=== PATIENT | male | born 1950 | race Caucasian/White ===

== ENCOUNTER 2016-10-28 22:49 | Observation (INO) | payer MEDICARE, BC ==
[~2016-10-28] VITALS: Ht 180.3 cm; Wt 85.0 kg
--- NOTE | ~2016-10-28 | ER ---
PATIENT'S NAME: CANDIDO AIKEN [facility] AGE: 66 Y [address] ROOM: [place] [address] LOCATION: [facility] [place] ADMIT DATE: 10/29/2016 ER/Outpatient Report DISCHARGE DATE: FAMILY PHYSICIAN: Agustín Hinkle MD ATTENDING PHYSICIAN: CHRISTINE MARIA V CHIEF COMPLAINT: Redness, pain, and swelling to the left ankle. HISTORY OF PRESENT ILLNESS: Mr. Aiken noticed a red spot on the inside of his left ankle on , October 25. He was seen on Saturday and started on Keflex and did not improve, in fact worsened, and was started on Bactrim recently. He has had continuation of extends, and is having more pain, and there is no blister. Supposedly, there was some drainage, but it is unclear what that was. The patient denies any other issues actively. He has no other complaints. He denies any shortness of breath. PAST MEDICAL HISTORY: Documented on the record and reviewed by me. SOCIAL HISTORY: Documented on the record and reviewed by me. MEDICATIONS: Documented on the record and reviewed by me. ALLERGIES: DOCUMENTED ON THE RECORD AND REVIEWED BY ME. REVIEW OF SYSTEMS: All systems reviewed and negative except as noted in the HPI. PHYSICAL EXAMINATION: VITAL SIGNS: Blood pressure 125/67, pulse 84, respiratory rate 16, temperature 98.3, and SpO2 is 93% on room air. Pain is rated 8/10. GENERAL: Age-appropriate male, upright on the exam chair, in no apparent pain or distress. NEUROLOGIC: Awake and alert. GCS 15. No focal deficits. No asymmetry. HEENT: Normocephalic, atraumatic. Eyes are PERRL. Oropharynx is clear. NECK: Supple. Trachea is midline. CHEST: Even and unlabored respirations. Heart is not tachycardic, regular rate and rhythm. BACK: Normal to inspection and palpation. ABDOMEN: Benign. PATIENT'S NAME: CANDIDO AIKEN [facility] AGE: 66 Y [address] ROOM: [place] [address] LOCATION: [facility] [place] ADMIT DATE: 10/29/2016 ER/Outpatient Report DISCHARGE DATE: FAMILY PHYSICIAN: Agustín Hinkle MD ATTENDING PHYSICIAN: CHRISTINE MARIA V EXTREMITIES: The left lower extremity is notable for marked area of erythema consistent with cellulitis, but poorly demarcated borders. The central most areas are very warm. There is a single bulla measuring 1 x 2 cm just inferior and posterior to the medial malleolus. No purulent drainage. Tender to palpation. Skin is shiny and erythematous. Sensation is intact throughout the foot. SKIN: Otherwise intact. LABORATORY DATA AND X-RAYS: Plain films do not reveal any osseous abnormalities or radiopaque foreign bodies. Labs: CMS without appreciable abnormality of electrolytes. Glucose is 104. No renal abnormalities. ESR is 66. CRP is 4.16. CBC is notable for a white count of 2.4, hemoglobin of 9.4, and platelets of 98. Differential was not able to be supplied. D-dimer is 2.03. Lactate is 0.8. IMPRESSION: 1. Likely cellulitis with failed outpatient treatment regimen. 2. Pancytopenia of unclear etiology. EMERGENCY DEPARTMENT COURSE: The patient was seen and evaluated as above. Infection, DVT, and abscess were of chief concern. D-dimer was elevated, and venous duplex ultrasound was obtained and negative per combination technician. Bedside ultrasound did not reveal any abscess and tissue was only consistent with cellulitis infection. The patient was incidentally found to have pancytopenia of undetermined etiology and duration. This can be a side effect of Bactrim. However, as the patient has clearly failed outpatient treatment, he was given a dose of IV clindamycin given the history of MRSA, and he will be admitted to the Hospitalist Service for further evaluation and treatment. MD BRIGID MUNSON/mami /[id number] d: 10/29/16 0416 t: 10/30/16 1253, OUTPATIENT REPORT
--- NOTE | ~2016-10-28 | CON ---
PATIENT'S NAME: DARIN AIKEN [facility] AGE: 66 Y [address] ROOM: [address] [place], [place] [address] [place] [facility] [place]: 10/29/2016 Consultation DISCHARGE DATE: 10/30/2016 FAMILY PHYSICIAN: Agustín Hinkle MD ATTENDING PHYSICIAN: Ralph Baumann V DATE OF CONSULTATION: 10/30/2016 REFERRING PHYSICIAN: Efraín Reza MD This is a consult to Dr. Rachel Mcmullen. REASON FOR CONSULTATION: Darin Aiken is a 66-year-old man with uncharacterized pancytopenia. HISTORY OF PRESENT ILLNESS: The history of the present illness was obtained from Mr. Aiken, who is a good historian, as there is very little medical history to recount; Mrs. Aiken; their two helpful daughters; and the current and old [facility] record. Mr. Aiken was in his normal state of health until morning, 10/25/2016. He lived in [place], [place] with his and "two cats." He had been retired for three years. He had no formal or informal exercise programs. He did not participate in any physical therapy or occupational therapy regimen. He had no practical limits. In the morning on 10/25/2016, he developed intense pruritus over the medial malleolus of his left tibia. A blister rapidly developed. By that evening, the pain was intense. The next day he presented to the [facility]. No blood work was obtained and cephalexin was prescribed. The patient's pain and pruritus did not improve, and on 10/27/2016, he presented to the [facility]. Trimethoprim sulfamethoxazole was prescribed there. The patient took two doses of trimethoprim sulfamethoxazole. The patient had progressive pain. Therefore, he presented to the [facility] late in the evening of 10/28/2016. At that time, the examination revealed an area of marked erythema consistent with cellulitis with poorly demarcated borders. The central areas were very warm and there was a single bulla measuring 2 cm just inferior and posterior to the medial malleolus. The white count was 2400 with 77% lymphocytes and 3% monocytes, 4% metamyelocytes, and 14% "abnormal lymphocytes." The ESR was 66 mm/hr. The hemoglobin was 9.4 G/dL, the MCV 100, and the platelets 98,000. Yesterday, the white count was 2200 with 7% blasts, 9% promyelocytes, 8% myelocytes, 1% metamyelocytes, 3% eosinophils, 3% monos, 66% lymphocytes, 1 band, and 1 seg. The hemoglobin was 9.5 G/dL, the MCV 100, and the platelets 85,000. The CMS was remarkable for an albumin of 3.1 G/dL, but otherwise was unremarkable. A two view chest x-ray just revealed osteoarthritis in the thoracic spine as PATIENT'S NAME: DARIN AIKEN [facility] AGE: 66 Y [address] ROOM: [address] [address] [place] [facility] [place]: 10/29/2016 Consultation DISCHARGE DATE: 10/30/2016 FAMILY PHYSICIAN: Agustín Hinkle MD ATTENDING PHYSICIAN: Ralph Baumann V well as an ectatic aorta. The plain film of the left ankle revealed no fracture or dislocation. Soft-tissue swelling was evident. The patient is seen in consultation. The patient has no prior history of blood dyscrasia. He last underwent a complete blood count in 2014 before a right carotid endarterectomy. The patient was not informed he had any abnormalities of the complete blood count at that point. The patient's family notes that he "seemed and looked tired" over the past several months but there has been no change in his performance status. The patient reports that he has treated himself with [id number] medications for a presumed fungal infection in the left great toenail. The patient has occasional audible palpitations in his ears and has a persistent productive cough. He produces a teaspoon a day of yellow sputum. The patient was asymptomatic when the carotid stenosis was noted on a health screening sonogram. The patient believes the carotid narrowing might have been 75 to 80% but recalls his attending physician stated it was over 95% at the time of surgery. ACTIVE MEDICAL PROBLEMS, CHRONIC, AND DIAGNOSED: 1. Atherosclerotic cerebrovascular disease leading to a right carotid endarterectomy. 2. Tobacco use; the patient has smoked 1-1/2 pack per day of cigarettes for 55 years. 3. Osteoarthritis of the thoracic spine noted on a chest x-ray. 4. Hypercholesterolemia noted in 2016. A statin was prescribed, but the patient has not adhered to that regimen. He experienced no side effects from the statins. ACUTE MEDICAL ILLNESSES (RESOLVED), PAST SURGERIES, INJURIES: 1. In 1968 (?), hemorrhoid. 2. In 1991 - concussion, no sequela. A heat pump fell on his head. 3. In 2007 - excision of a basal cell carcinoma from the neck. 4. In 2011 - methicillin-sensitive Staphylococcus aureus infection of the right dorsal forearm. 5. In 2011 - right proximal dorsal forearm excision of a squamous cell carcinoma. 6. In 2014 - a right carotid endarterectomy. MEDICATIONS: Up on admission: 1. ASA 81 mg p.o. daily. 2. Dietrich-3 fatty acids 1000 mg p.o. daily. 3. Trimethoprim-sulfamethoxazole DS 1 p.o. b.i.d. PATIENT'S NAME: DARIN AIKEN [facility] AGE: 66 Y [address] ROOM: [place] [address] [place] [facility] [place] DATE: 10/29/2016 Consultation DISCHARGE DATE: 10/30/2016 FAMILY PHYSICIAN: Agustín Hinkle MD ATTENDING PHYSICIAN: Ralph Baumann V ADVERSE REACTIONS TO MEDICATIONS, TRANSFUSIONS, ALLERGIES: 1. No known allergies. 2. No history of transfusions. TOBACCO: 1-1/2 pack per day for 55 years. The patient continues to smoke. ALCOHOL: One alcoholic beverage a month. CAFFEINE: One cup of coffee a day. IMMUNIZATIONS: Negative flu, negative Pneumovax, the patient will take the Pneumovax shot here. Negative tetanus. Negative varicella zoster virus. FAMILY HISTORY: Negative for blood dyscrasias or malignancies. SOCIAL HISTORY: The patient was born and raised [place], [place]. He attended [employer] in [place]. The patient has been and has lived in [place] for many decades. 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 His worked for decades at [employer] in [place]. They have two daughters in the [place] area and they are not gnosticism goers. REVIEW OF SYMPTOMS: 1. Has a stiff neck and mild hip. 2. Longstanding bilateral tinnitus. 3. Occasional hematochezia about every 3 months for many years. The patient has not had a colonoscopy. PHYSICAL EXAMINATION: VITAL SIGNS: Pulse 72 and regular, blood pressure 125/60, respiratory rate 16, temperature 97.9, and SpO2 95% on room air. Height 71 inches, weight 85 kg (187 pounds). BMI 26.1 kg/m2. GENERAL APPEARANCE: Well-developed, slightly overweight, 66-year-old, male, in no acute distress. HEENT: Unremarkable. Minimal acne rosacea. LYMPH NODES: None palpable. NECK: A right carotid endarterectomy scar. No bruits or adventitious sounds. SKIN: Seborrheic keratosis, potter angiomas, and nevi. PATIENT'S NAME: DARIN AIKEN [facility] AGE: 66 Y [address] ROOM: [address] [place] [id number] [place] [facility] [place] DATE: 10/29/2016 Consultation DISCHARGE DATE: 10/30/2016 FAMILY PHYSICIAN: Agustín Hinkle MD ATTENDING PHYSICIAN: Ralph Baumann V CHEST: Decreased breath sounds bilaterally. CV: Regular rhythm. No murmurs, bruits, or adventitious sounds. ABDOMEN: No masses, tenderness, or organomegaly. GENITALIA AND RECTAL: There are no active external hemorrhoids. Digital rectal exam is not performed. EXTREMITIES: Pulses 2+ throughout without peripheral edema. There is a confluent area of erythema and warmth with a 2-cm blister on the medial aspect of the left leg. The blister is close to the medial malleolus. NEUROLOGIC: The patient moves all 4 extremities. Grossly intact. He is alert and oriented. IMPRESSION: 1. A 66-year-old man with a 5-day history of unprovoked cellulitis on the left lower leg, unresponsive to oral antibiotics, responsive to parenteral antibiotics, pancytopenia with macrocytic anemia, agranulocytosis and multiple immature myeloid forms on peripheral smear. 2. 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 RECOMMENDATIONS: DIAGNOSTIC: 1. LDH and uric acid. 2. INR and PTT. 3. Folic acid and B12. 4. Consult the Acute Leukemia Service at [facility] for assistance in evaluation and management. TREATMENT: 1. No antineoplastic therapy at this point. 2. Continue current medications. PATIENT EDUCATION: 1. Confirmed what we did know and discussed what we did not know. 2. Acknowledge we think it most likely he has acute leukemia. 3. Discussed the advantages of evaluation at a tertiary medical center. It is probably reasonable to get a bone marrow aspiration and biopsy at [facility] instead of here. 4. Gave him the [employer] material on acute myeloid leukemia. MD DAYDAY JON/mami /[id number] PATIENT'S NAME: DARIN AIKEN [facility] AGE: 66 Y [address] ROOM: [place] [address] [place] [facility] [place]: 10/29/2016 Consultation DISCHARGE DATE: 10/30/2016 FAMILY PHYSICIAN: Agustín Hinkle MD ATTENDING PHYSICIAN: Ralph Baumann V CC: MD Loli Arellano MD d: 10/30/16 2325 t: 10/31/16 1005, CONSULTATION REPORT
--- NOTE | ~2016-10-28 | ENPV ---
Vascular Lower Extremities DVT Study Procedure Demographics Patient Name CANDIDO MESSINA Date of Study 10/29/2016 Patient Number [id number] Gender Male Date of 1950 Age 66 Visit Number [id number] Height Accession Number [id number] Weight Room Number G3218 BSA BMI Referring Arin Del Valle MD Interpreting Hero Rivera MD Physician Physician Physician Ordering Georgiana Bourne MD Director Of Maintenance Physician Pattern Wheel Maker Eddy [facility], [facility] Conclusions Summary No evidence of deep vein thrombosis or superficial thrombophlebitis in the left lower extremity. Procedure Type of Study: Veins:Lower Extremities DVT Study, Lower Extremity Left. Appropriate Use Criteria:9 Patient Status:STAT. Study Location:ER. Technical Quality:Good visualization. Velocities are measured in cm/s ; Diameters are measured in cm Left Lower Extremities DVT Study Measurements Left 2D and Doppler Measurements + + + + +------+------+ + !Location !Visualized!Compressibility!Thrombosis!Signal!Reflux!Reflux ! ! ! ! ! ! ! !(sec) ! + + + + +------+------+ + !GSV Thigh !Yes !Yes !None !Phasic! ! ! + + + + +------+------+ + !Common !Yes !Yes !None !Phasic! ! ! !Femoral ! ! ! ! ! ! ! + + + + +------+------+ + !Prox !Yes !Yes !None !Phasic! ! ! !Femoral ! ! ! ! ! ! ! + + + + +------+------+ + !Mid Femoral!Yes !Yes !None ! ! ! ! + + + + +------+------+ + !Dist !Yes !Yes !None !Phasic! ! ! !Femoral ! ! ! ! ! ! ! + + + + +------+------+ + !Popliteal !Yes !Yes !None !Phasic! ! ! + + + + +------+------+ + !Gastroc !Yes !Yes !None !Phasic! ! ! + + + + +------+------+ + !PTV !Yes !Yes !None ! ! ! ! + + + + +------+------+ + !Peroneal !Yes !Yes !None ! ! ! ! + + + + +------+------+ + Signature dtt: JULIETH JULES dtd: 10/29/16 0030 Physician Self Edit
--- NOTE | ~2016-10-28 | DS ---
PATIENT'S NAME: CANDIDO AIKEN [facility] AGE: 66 Y [address] ROOM: [address] [place], [place] [address] LOCATION: [facility] [place] ADMIT DATE: 10/29/2016 Discharge Summary DISCHARGE DATE: 10/30/2016 FAMILY PHYSICIAN: Agustín Hinkle MD ATTENDING PHYSICIAN: Ralph Baumann V PRINCIPAL DISCHARGE DIAGNOSIS: Acute myeloid leukemia. SECONDARY DIAGNOSES: 1. Pancytopenia. 2. Severe neutropenia. 3. Cellulitis, status post suspected insect bite. 4. Tobacco use. CONSULTATIONS: Hematology/oncology, Dr. Reza on 10/30/2016 regarding blasts on peripheral blood smear. BRIEF HISTORY: Mr. Aiken is a 66-year-old, male who has no significant past medical history, excepting carotid endarterectomy. He reports he is not even sure when he had his last visit to his PCP or when his last CBC would have been. On the , the patient noticed some redness and swelling around his left ankle and was seen in outpatient clinic where he was started on Keflex. He reports that he took 500 mg of Keflex p.o. q.i.d. on Saturday and swelling and redness continued to increase at the site of what he presumed to be a bug bite on his left medial ankle. Later on that day, the , he was changed to Bactrim, and he reports that he took 2 doses of double strength Bactrim on Saturday, the . When he continued to have symptoms, which did not seem to be responding to the antibiotics, he presented to emergency room. On evaluation in the emergency room here at [facility], in [place], [place], he was found to have leukopenia with no neutrophils and absolute neutrophil count of 0, anemia, and thrombocytopenia. He was started on IV clindamycin and admitted for further evaluation and treatment. Yesterday when the CBC was repeated, there were some blasts and other immature forms noted. At that time, the patient was placed on neutropenic precautions and advised that it is very unlikely that the acute infection and/or the antibiotics could be the etiology for these abnormal blood counts. Dr. Reza of Oncology was consulted this morning. He reviewed the blood smears with our pathologist and it is confirmed that there were immature forms with blasts and it likely indicated a type of myeloid leukemia requiring immediate evaluation. The patient agrees to be transferred to [facility] PATIENT'S NAME: CANDIDO AIKEN [facility] AGE: 66 Y [address] ROOM: [address] [place], [place] [address] LOCATION: [facility] [place] ADMIT DATE: 10/29/2016 Discharge Summary DISCHARGE DATE: 10/30/2016 FAMILY PHYSICIAN: Agustín Hinkle MD ATTENDING PHYSICIAN: Ralph Baumann V [facility], [facility]. Dr. Reza feels the patient can be appropriately transported via private automobile at this time. CONDITION AT DISCHARGE: Good. DISCHARGE INSTRUCTIONS: To drive directly to [facility]. MEDICATIONS AT DISCHARGE: We will recommend that he continue on IV clindamycin for his cellulitis of the left lower leg; however, defer all medical management to the accepting hospital. Dr. Reza has discussed the transfer and spoke with the accepting physician at the [facility] and advised me that the transfer should be initiated promptly. MINH RAMIREZ MD LM/mami /[id number] P d: 10/30/16 1544 t: 11/05/16 1223, DISCHARGE SUMMARY
--- NOTE | ~2016-10-28 | HP ---
[facility] 66 Y [address] ROOM: [facility] [place], [place] [address] LOCATION: [facility] [place] ADMIT DATE: 10/29/2016 History & Physical DISCHARGE DATE: FAMILY PHYSICIAN: Agustín Hinkle MD ATTENDING PHYSICIAN: CHRISTINE MARIA V DATE OF SERVICE: CHIEF COMPLAINT: Left lower extremity swelling. HISTORY OF PRESENT ILLNESS: The patient is a 66-year-old male who noted an insect bite on the medial aspect of his left foot approximately 3 days ago. The swelling and redness got worse and he was seen in after-hours clinic. There he was started on Keflex, but symptoms did not improve. The patient subsequently went to see his PMD and was placed on Bactrim. That was approximately 36 hours ago. However, the swelling and the redness continued to extend. Today, the patient came to the ER. Here, he had negative Dopplers, but was found to have pancytopenia. He denies any shortness of breath, chest pain, nausea, vomiting, diaphoresis associated with this presentation. REVIEW OF SYSTEMS: All systems have been reviewed and are negative aside from pertinent positives mentioned above. PAST MEDICAL HISTORY: Significant for a carotid endarterectomy on the right. CURRENT MEDICATIONS: 1. Fish oil. 2. Baby aspirin. SOCIAL HISTORY: The patient has been a lifelong smoker and continues to smoke approximately a pack a day. FAMILY HISTORY: The patient denies any pertinent family history. PHYSICAL EXAMINATION: VITAL SIGNS: His blood pressure is 112/60, heart rate is in the 70s, afebrile, respirations are 16. GENERAL: Well-developed, well-nourished elderly male, looking younger age [facility]: [facility]GE[facility] 66 Y [address] ROOM: [facility] [place], [place] [address] LOCATION: [facility] [place] ADMIT DATE: 10/29/2016 History & Physical DISCHARGE DATE: FAMILY PHYSICIAN: Agustín Hinkle MD ATTENDING PHYSICIAN: CHRISTINE MARIA V than stated, in no acute distress. NEUROLOGIC EXAM: Nonfocal. EYE EXAM: Shows pupils are equal and reactive to light. LYMPHATIC EXAM: Shows no cervical lymphadenopathy. ENDOCRINE EXAM: Shows no thyromegaly. LUNGS: Clear to auscultation bilaterally. HEART: Rate is regular. No appreciable murmurs, gallops, or rubs. GI: Abdomen is soft, nontender, and nondistended. : No costovertebral angle tenderness. VASCULAR EXAM: 2+ pedal pulses. SKIN: Reveals erythema and warmth over the dorsum of his left foot with a lesion at the medial aspect of the right malleolus. PSYCHIATRIC EXAM: Appropriate mood, cognition, and affect. LABORATORY DATA: Studies performed in the ER significant for unremarkable basic metabolic profile. CRP of 4.16. White count 2.4, hemoglobin 9.4, platelets are 9.8. D- dimer 2.03. ESR is 66. ASSESSMENT AND PLAN: 1. This is a 66-year-old male who will be admitted with left lower extremity cellulitis that failed outpatient antibiotics. The patient has been started on clindamycin. We will continue that. We will follow the extent of the cellulitis clinically. We will place him on a probiotic. 2. Pancytopenia. This could possibly be related to Bactrim. We will follow the patient's counts through his hospital stay and consider Hematology consultation. 3. Pharmacologic DVT prophylaxis will be instituted if the patient is immobilized and stays in the hospital for more than 48 hours. 4. Tobaccoism. We will provide him a nicotine patch. Additional management will depend on clinical course. Time dedicated for this patient encounter is 25 minutes. MD JOSUE ROUSSEAU/mami /[id number] D: [id number] T: [id number] HISTORY & PHYSICAL
[2016-10-28 23:38] LABS: HEMATOCRIT 27.2 % (37.0-53.0); HEMOGLOBIN 9.4 g/dL (11.0-16.0); MCH 34.4 pg (27.0-34.0); MCHC 34.6 gm/dL (32.0-36.5); MCV 99.6 fl (83.0-98.0); PLATELET COUNT 98 K/uL (150-450); RBC 2.73 M/uL (3.50-5.50); RDW-CV 17.3 % (11.9-14.6); WBC 2.4 K/uL (4.0-11.0)
[2016-10-29 00:24] LABS: LYMPHOCYTE # 2.2 K/uL (0.8-4.0); LYMPHOCYTE % 77 %; MONOCYTE # 0.1 K/uL (0.0-1.0); SEGMENTED NEUTROPHIL % 1 %
[2016-10-29 00:45] LABS: ALBUMIN 3.4 gm/dL (3.5-5.0); ANION GAP 12.1 (10.0-19.0); CALCIUM 8.2 mg/dL (8.5-10.5); CREATININE 1.2 mg/dL (0.6-1.3); PHOSPHORUS 4.1 mg/dL (2.5-4.9); POTASSIUM 4.1 mMol/L (3.7-5.1)
[2016-10-29] MEDS ORDERED: ASPIRIN (CHILDR81 MG PO (03:11)
[2016-10-29] MEDS ORDERED: BACTRIM DS1 TAB PO (03:13)
[2016-10-29] MEDS ORDERED: FISH OIL 1,0001 EAC1 PO (03:14)
[2016-10-29 13:15] LABS: HEMATOCRIT 27.9 % (37.0-53.0); HEMOGLOBIN 9.5 g/dL (11.0-16.0); MCH 34.2 pg (27.0-34.0); MCHC 34.1 gm/dL (32.0-36.5); MCV 100.4 fl (83.0-98.0); PLATELET COUNT 85 K/uL (150-450); RBC 2.78 M/uL (3.50-5.50); RDW-CV 17.2 % (11.9-14.6); WBC 2.2 K/uL (4.0-11.0)
[2016-10-29 13:59] LABS: BANDED NEUTROPHILS % 1 %; LYMPHOCYTE # 1.5 K/uL (0.8-4.0); LYMPHOCYTE % 66 %; MONOCYTE # 0.1 K/uL (0.0-1.0); SEGMENTED NEUTROPHIL % 1 %
[2016-10-30 04:42] LABS: HEMATOCRIT 26.7 % (37.0-53.0); MCH 33.2 pg (27.0-34.0); MCHC 33.7 gm/dL (32.0-36.5); MCV 98.5 fl (83.0-98.0); MPV 9.7 fl (9.4-12.4); PLATELET COUNT 85 K/uL (150-450); RBC 2.71 M/uL (3.50-5.50); WBC 2.4 K/uL (4.0-11.0)
[2016-10-30 05:02] LABS: ALBUMIN 3.1 gm/dL (3.5-5.0); ANION GAP 9.3 (10.0-19.0); CALCIUM 8.4 mg/dL (8.5-10.5); CREATININE 1.1 mg/dL (0.6-1.3); POTASSIUM 4.3 mMol/L (3.7-5.1); TOTAL BILIRUBIN 0.4 mg/dL (0.0-1.5); TOTAL PROTEIN 6.1 g/dL (6.0-8.4)
[2016-10-30 05:52] LABS: ABSOLUTE NEUTROPHIL CT (ANC) 0.1 K/uL (1.4-9.0); BANDED NEUTROPHILS % 1 %; LYMPHOCYTE # 1.7 K/uL (0.8-4.0); LYMPHOCYTE % 72 %; SEGMENTED NEUTROPHIL # 0.1 K/uL (1.4-9.0); SEGMENTED NEUTROPHIL % 3 %
[2016-10-30 11:52] LABS: INR - (THERAPEUTIC) 0.99 (0.92-1.07); PROTIME 10.4 SECONDS (9.8-11.4)
== END 2016-10-30 15:45 | disposition other institution (70) ==
LOC: GMED 22:49 → GMSU 10-29 01:56
PROVIDERS: Emergency Medicine; Internal Medicine; Internal Medicine Hematology & Oncology; Nurse Practitioner Family; ADMIT Internal Medicine
DX: L03.116 Cellulitis of left lower limb (principal); D61.818 Other pancytopenia; M47.814 Spondylosis without myelopathy or radiculopathy, thoracic region; E78.00 Pure hypercholesterolemia, unspecified; M79.89 Other specified soft tissue disorders; Z98.890 Other specified postprocedural states; F17.210 Nicotine dependence, cigarettes, uncomplicated; Z79.82 Long term (current) use of aspirin
CPT/HCPCS: J7050

== ENCOUNTER 2016-12-05 11:30 | Inpatient (IN) | payer MEDICARE, BC ==
[~2016-12-05] VITALS: Ht 180.3 cm; Wt 84.1 kg
--- NOTE | ~2016-12-05 | DS ---
PATIENT'S NAME: CANDIDO MESSINA [facility] AGE: 66 Y [address] ROOM: [id number] [place], [place] [address] LOCATION: [facility] ADMIT DATE: 12/05/2016 Discharge Summary DISCHARGE DATE: 12/12/2016 FAMILY PHYSICIAN: Agustín Hinkle MD ATTENDING PHYSICIAN: Jb Dumont DISCHARGE DIAGNOSES: 1. Febrile neutropenia, uncharacterized. 2. Multiple nodular lung lesions. 3. Acute myeloid leukemia. 4. Pancytopenia. 5. Diarrhea. 6. Left lower extremity wound. 7. Acute hypoxic respiratory failure. 8. Acute kidney injury. CONSULTING PHYSICIAN: Dr. Reza. HOSPITAL COURSE: Please refer to admitting history and physical as dictated by Dr. Dumont. Briefly, the patient was admitted to [facility] with a recent diagnosis of AML after a month long stay at [facility] with induction chemotherapy and re-induction for persistent blasts. The patient was admitted for pancytopenia and febrile neutropenia. He had been on voriconazole, acyclovir, and Levaquin as an outpatient. He did present with chronic nonhealing left lower extremity wound and a PICC line to the right upper extremity without evidence of infection. Blood cultures were drawn prior to admit. He was started on normal saline and given 2 L. Cefepime 2 g IV q.8 hours was initiated, as well as neutropenic precautions. Dr. Reza did kindly see the patient and followed along throughout his stay. The patient continued to have fevers. Tylenol was used as needed. On 12/06/2016, the patient had a fever as high as 102. He was started on IV vancomycin. Hemoglobin was found to be 6.8. He was transfused with 1 unit of packed red blood cells. His platelets were monitored throughout his stay. If below 10, he was given a platelet transfusion. Fungal culture was obtained. He did require pretreatment prior to transfusions. He did have multiple episodes of reactions to blood, with an increase in temperature. MRI of the left foot was obtained, which showed a hind foot and ankle medial skin thickening, possible cellulitis. No osteomyelitis or abscess. The left lower extremity had no drainage, erythema, or warmth. Chest x-ray showed no vascular congestion or acute infiltrate. He was noted to have diarrhea. C. diff was negative. He was started on Imodium for his diarrhea, which did improve. He was noted to have some dyspnea with exertion. Florastor was used for GI prophylaxis as per Oncology. Multiple blood cultures through peripheral site and PICC line were obtained, which all showed no growth to date. During the transfusion reaction, that blood showed no organisms observed and showed no growth at [address] Rendon did call and PATIENT'S NAME: CANDIDO MESSINA [facility] AGE: 66 Y [address] ROOM: [address] [address] LOCATION: [facility] ADMIT DATE: 12/05/2016 Discharge Summary DISCHARGE DATE: 12/12/2016 FAMILY PHYSICIAN: Agustín Hinkle MD ATTENDING PHYSICIAN: Jb Dumont speak with Infectious Disease. His vancomycin and cefepime were stopped. He was started on meropenem 1 g IV q.8 hours on 12/04/2016. CT of the chest was done as he continued to have neutropenic fevers up to 103.1. CT scan of the chest showed nodular masses in the left upper lobe and right lower lobe. Surrounding interstitial edema, questionable multifocal pneumonia. The patient did not make progress. He continued to be neutropenic throughout his stay. White count of 0.7. Pulmonology consult was obtained for the nodular masses in his lungs. It was felt as though he was at increased risk for bronchoalveolar lavage due to his pancytopenia and bleeding. Sputum culture was attempted, however, unable to be obtained. Dr. Reza did speak with Dr. Rojas on 12/12/2016 and it was felt as though the patient should be transferred to [facility] for higher level of care, further Infectious Disease consultation, as well as Oncology. His creatinine was noted to be 1.0 on admit. It did increase to 2.0. This was discussed with the patient and family. It was felt as though the patient should proceed with transfer to [facility] for higher level of care. Arrangements were made with Dr. Loli Rojas to accept the patient. LABORATORY DATA: Sodium 138-141, potassium 3.9-4.3, glucose 108, calcium 7.9. BUN on admit 13, prior to discharge 43. Creatinine 1.0 on admit, 2.0 on discharge. WBCs on admit 0.7, it ranged from 0.6-0.8. Hemoglobin on admit 6.4, it did trend as high as 8.1 on the day of discharge, 8.0 after transfusion the previous night; hematocrit 18.2 to 23.1; platelets 24 on admit, dropped as low as 9 on the day of discharge. Blood cultures: No growth to date. Stool negative for C diff. RADIOLOGY REPORTS: Please see hospital course. TRANSFER INSTRUCTIONS: The patient will be transferred to [facility], Dr. Loli Rojas to accept. Diet: Regular. Activity: As tolerated. Neutropenic precautions: O2 to keep sats greater than 90%. TRANSFER MEDICATIONS: 1. Merrem 1 g every 12 hours. 2. Acyclovir 400 mg p.o. twice daily. 3. Magnesium oxide 400 mg p.o. daily. 4. Florastor 250 mg p.o. twice daily. 5. Voriconazole 200 mg p.o. twice daily. 6. DuoNeb twice daily. 7. Tylenol 650 mg every 6 hours as needed for pain. 8. Cholestyramine 4 g daily p.r.n. diarrhea. 9. Imodium 2 g p.o. as needed after each loose stool, max 16 g per day. 10. Compazine 10 mg p.o. every 6 hours as needed for nausea. 11. DuoNeb 1 inhalation every 4 hours as needed for shortness of breath or wheezing. PATIENT'S NAME: CANDIDO MESSINA [facility] AGE: 66 Y [address] ROOM: [place] [address] LOCATION: [facility] ADMIT DATE: 12/05/2016 Discharge Summary DISCHARGE DATE: 12/12/2016 FAMILY PHYSICIAN: Agustín Hinkle MD ATTENDING PHYSICIAN: Jb Dumont Thank you for allowing us to participate in the care of this patient as he has been hospitalized at [facility]. ADRIANA LIGHT APRN FOR MD MARILYN GALLO/mami /[id number] d: 12/13/16809 t: 12/18/16 1512, DISCHARGE SUMMARY
--- NOTE | ~2016-12-05 | CON ---
PATIENT'S NAME: CANDIDO MESSINA [facility] AGE: 66 Y [address] ROOM: [address] [address] LOCATION: [facility] ADMIT DATE: 12/05/2016 Consultation DISCHARGE DATE: FAMILY PHYSICIAN: Agustín Hinkle MD ATTENDING PHYSICIAN: BRIDGER ENAMORADO DATE OF CONSULTATION: 12/11/2016 REFERRING PHYSICIAN: Efraín Reza MD REASON FOR CONSULTATION: Pulmonary nodules in a patient with pancytopenia admitted for neutropenic fever. HISTORY OF PRESENT ILLNESS: A 66-year-old male with suspected acute myeloid leukemia. He is currently admitted with neutropenic fever, being treated with vancomycin, meropenem, cefepime and patient is also on acyclovir and voriconazole. According to the medical records, he was in his usual state of health until October 25, 2016 when he was found to have a rapidly developing blister on the medial malleolus and then later on was started on antibiotic treatment, which did not cure him, and three days later, he was brought into the [facility] when he was found to have pancytopenia. He had a CT scan done yesterday, which showed three nodular mass lesions, one in the left upper lobe measuring 35 mm and two in the right lower lobe measuring 37 mm and 29 mm respectively, but there was no mediastinal lymphadenopathy. On bedside examination, the patient complains of dry cough, but denies any excessive sputum production. At times, he produces clear phlegm. Denies any hemoptysis. Complains of fever, chills, anorexia, and malaise. He has significant smoking history in the past. He smoked almost for 55 years and 1- 1/2 pack per day and he stopped smoking only two months ago. PAST MEDICAL HISTORY: 1. Atherosclerotic cerebrovascular disease, leading to right carotid endarterectomy. 2. Osteoarthritis of thoracic spine. 3. Hyperlipidemia. 4. Tobacco use 1 to 1-1/2 pack per day for 55 years, stopped 2 months ago. PAST SURGICAL HISTORY: 1. In 2014, had a right carotid endarterectomy. 2. 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 PATIENT'S NAME: CANDIDO MESSINA [facility] AGE: 66 Y [address] ROOM: [address] [address] LOCATION: [facility] ADMIT DATE: 12/05/2016 Consultation DISCHARGE DATE: FAMILY PHYSICIAN: Agustín Hinkle MD ATTENDING PHYSICIAN: BRIDGER ENAMORADO 3. In 2007, had excision of basal cell carcinoma from neck. MEDICATIONS: He was taking aspirin and omega-3 fatty acids and Bactrim at home. SOCIAL HISTORY: A 55-year smoking history, smoked 1 to 1-1/2 pack per day, stopped two months ago. Denies any alcohol use. FAMILY HISTORY: No significant family history for cancer. REVIEW OF SYSTEMS: RESPIRATORY: Complains of dry cough productive of sputum. GENERAL: Complains of fever, chills, anorexia, and malaise. A complete 10-point review of system was performed, which was negative as mentioned above. PHYSICAL EXAMINATION: VITAL SIGNS: Temperature 103.1, pulse 110, respirations 20, blood pressure 139/70, saturation 93%. GENERAL: In no apparent distress. CHEST: Bilateral equal air entry. No wheezing. No rhonchi. CARDIOVASCULAR: S1, S2, regular. No murmur, rub, or gallop. ABDOMEN: Soft, nontender, nondistended. Positive bowel sounds. EXTREMITIES: Bilateral pedal edema 2+. There is ulceration on the skin below the medial malleolus, on the medial aspect of the left foot. GENERALIZED SKIN: No rash. LABORATORY DATA: CBC: WBC 0.8, hemoglobin 6.8, hematocrit 19.7, platelet 12. CMP: Sodium 140, potassium 4.3, chloride 107, bicarb 28, BUN 15, creatinine 1.1. IMAGING: CT scan showed nodular mass lesions measuring 35 mm in the left upper lobe and two in the right lower lobe measuring 37 mm and 29 mm. No mediastinal lymphadenopathy. ASSESSMENT AND PLAN: 1. Multiple nodular lung lesions in patient with suspected acute myeloid PATIENT'S NAME: CANDIDO MESSINA [facility] AGE: 66 Y [address] ROOM: [address] [address] LOCATION: [facility] ADMIT DATE: 12/05/2016 Consultation DISCHARGE DATE: FAMILY PHYSICIAN: Agustín Hinkle MD ATTENDING PHYSICIAN: BRIDGER ENAMORADO leukemia with pancytopenia, could be infectious/inflammatory, chloroma is also a possibility in view of suspected leukemia. Opportunistic pathogens for example Nocardia, Aspergillus cannot be ruled out as well as other fungal pathogens. a. We will recommend induce sputum for Gram stain and culture, fungal stain and culture, and AFB stain and culture. b. Fungal serology. c. The nodular lesions are mostly central in location, but not amenable for bronchoscopic biopsy, but bronchoscopy with bronchoalveolar lavage is definitely a consideration. Again, the patient is at high risk for complications including bleeding due to pancytopenia. I believe infectious disease consultation will be helpful. 2. Neutropenic fever. On vancomycin, meropenem, cefepime, acyclovir and voriconazole. a. Followup blood culture negative so far. 3. Suspected acute myeloid leukemia with pancytopenia. a. Management as per Oncology. b. Schedule for PRBC transfusion tonight. MD AIDEN RAHMAN/mami /[id number] d: 12/12/16 0240 t: 12/13/16 1731, CONSULTATION REPORT
--- NOTE | ~2016-12-05 | HP ---
PATIENT'S NAME: CANDIDO MESSINA [facility] AGE: 66 Y [address] ROOM: [address] [place], [place] [address] LOCATION: [facility] ADMIT DATE: 12/05/2016 History & Physical DISCHARGE DATE: FAMILY PHYSICIAN: Agustín Hinkle MD ATTENDING PHYSICIAN: BRIDGER ENAMORADO DATE OF SERVICE: 12/05/2016 CHIEF COMPLAINT: Fevers with neutropenia. HISTORY OF PRESENT ILLNESS: This is a very pleasant 66-year-old male with a relatively benign past medical history, until of late when he presented to PCP in middle of October for evaluation of left foot nonhealing wound. This was initially treated with antibiotics without improvement. However, as part of his evaluation, he was noted to have blasts in peripheral blood. Fast forward to current, the patient is now with a recently diagnosed AML and status post induction chemotherapy and subsequent re-induction chemotherapy for persistent blasts at [facility] where he was admitted from October 30 to November 29. Also complicating stay at [facility] was a viridans group strep bacteremia and febrile neutropenia there as well. The patient was recently treated with Rocephin and vancomycin. He remains on voriconazole, acyclovir, and Levaquin prophylactic doses chronically. Yesterday in his local oncologist's office, lab was drawn, noted a white cell count of 0.82, hemoglobin 7.4, platelets 7. The patient was treated with a single platelet transfusion and discharged home. Today, the patient noted he was feeling chilled and upon presentation to followup, was found to have a temperature of 100.5, prompting admission for febrile neutropenia. Of note, patient follows with Dr. Rojas at [facility]. The patient denies any other contributing symptoms including no nausea, vomiting, diaphoresis, chest pain, shortness of breath, cough, abdominal pain, bowel or bladder dysfunction, leg swelling, or new skin lesions. He does note he has had some dry scalp as well as the aforementioned left heel wound. However, the heel wound does look stable of late, according to him. It is not painful and looks to him to be chronically bruised, not warm or increasingly red. He has a RUE PICC line placed last month and notes no concerns related to this. PAST MEDICAL HISTORY: 1. Acute myelogenous leukemia with recent induction and re-induction chemotherapy. 2. Long-standing history of tobacco use, lifelong smoker, quit upon admission to [facility] last month. 3. Carotid atherosclerosis. 4. Basal and squamous cell skin cancer history. PATIENT'S NAME: CANDIDO MESSINA [facility] AGE: 66 Y [address] ROOM: G[address] [place], [place] [address] LOCATION: [facility] ADMIT DATE: 12/05/2016 History & Physical DISCHARGE DATE: FAMILY PHYSICIAN: Agustín Hinkle MD ATTENDING PHYSICIAN: BRIDGER ENAMORADO PAST SURGICAL HISTORY: 1. Carotid endarterectomy. 2. Rotator cuff repair. FAMILY HISTORY: Reviewed and noncontributory to current presentation. SOCIAL HISTORY: As mentioned lifelong smoker quit, October 30, 2016. Reported social alcohol use. The patient is and retired. ALLERGIES: NO KNOWN DRUG ALLERGIES. MEDICATIONS: 1. Voriconazole. 2. Acyclovir. 3. Levaquin. 4. Magnesium oxide. 5. Compazine. REVIEW OF SYSTEMS: Complete review of systems is able to be performed and unremarkable except as noted above in HPI. PHYSICAL EXAMINATION: VITAL SIGNS: Temp on arrival 99.7, pulse 92, respirations 16, blood pressure 126/64, saturating 94% on room air. Weight 80.7 kg for a BMI of 24.8. GENERAL: Patient is in no acute distress. Sitting up in chair, comfortable, with mask on. HEAD: Normocephalic, atraumatic with dry skin potentially consistent with seborrheic dermatitis. EYES: Pupils equal, round, reactive to light. Extraocular muscles intact. No conjunctival injection. No scleral icterus. MOUTH: Mucous membranes moist. No appreciable sores or lesions on mucous membranes. CARDIOVASCULAR: Regular rate and rhythm. No murmurs, rubs, or gallops appreciated. Pulses 2+ bilaterally including radial and dorsalis pedis. No lower extremity edema appreciated. RESPIRATORY: Clear to auscultation bilaterally. Normal effort, saturating well on room air. ABDOMEN: Soft, nontender, nondistended with normoactive bowel sounds. EXTREMITIES: Left medial heel with approximately 0.5 cm sore without active drainage with surrounding 4-5 cm circumferential ecchymosis without appreciable warmth or erythema or streaking. The patient does have right upper extremity PICC line in place without apparent warmth, erythema, or other infectious concerns. This is also nontender. PATIENT'S NAME: CANDIDO MESSINA [facility] AGE: 66 Y [address] ROOM: [address] [address] LOCATION: [facility] ADMIT DATE: 12/05/2016 History & Physical DISCHARGE DATE: FAMILY PHYSICIAN: Agustín Hinkle MD ATTENDING PHYSICIAN: BRIDGER ENAMORADO NEUROLOGIC: The patient is alert and oriented x3. Moving all extremities voluntarily without focal deficits appreciated. LABORATORY DATA AND IMAGING: White count 0.82, hemoglobin 7.4, platelets 7, this is drawn 12/04/2016 and the patient has subsequently had platelet transfusion. CMP notable for sodium 140, potassium 4.3, chloride 102, BUN 16, creatinine 0.9, glucose 130, calcium 8.7. Total protein 6.4, albumin 3.4, AST 20, ALT 23, alkaline phosphatase 74, bilirubin 0.3. Blood cultures were drawn from Oncology Clinic and are sent over for ongoing monitoring. ASSESSMENT: 1. Neutropenic fever. 2. Pancytopenia in setting of recent chemotherapy. 3. Acute myelogenous leukemia. 4. History of tobacco abuse. 5. Chronic nonhealing wound left lower extremity without appearance of active infection. PLAN: 1. We will admit to [facility] for full admission for neutropenic fever and start patient on cefepime 2 g IV q.8 hours as well as gentle IV rehydration with normal saline for mild tachycardia. No concern at this point in time for skin source as I feel the left lower extremity wound and the right PICC line do not show evidence of infection. The patient did have strep viridans bacteremia as noted at [facility] and does have poor dentition suspicious for this potentially being again the culprit without other identifiable source. We will monitor CBCs daily with platelet transfusions for count less than 10 or if bleeding and packed red blood cell transfusion if hemoglobin drops less than 7. Risks and benefits of transfusion have been discussed with the patient. He agrees to proceed as needed. Blood cultures have been drawn at oncology office, will await these results and send additional cultures for any reoccurrance of fever. 2. We will hold DVT prophylaxis given severe thrombocytopenia. Oncology is aware of admission and will follow as needed. 3. The patient is a full code. Time spent on date of admission with reviewing records and [id number] encounter with the patient is 35 minutes. BRIDGER ENAMORADO MD JRAÚL/mami PATIENT'S NAME: CANDIDO MESSINA [facility] AGE: 66 Y [address] ROOM: [place] [address] LOCATION: [facility] ADMIT DATE: 12/05/2016 History & Physical DISCHARGE DATE: FAMILY PHYSICIAN: Agustín Hinkle MD ATTENDING PHYSICIAN: BRIDGER ENAMORADO /[id number] D: 905 T: 929 HISTORY & PHYSICAL
[~2016-12-05 11:30] MED LIST: ASPIRIN (CHILDR81 MG PO; BACTRIM DS1 TAB PO; FISH OIL 1,0001 EAC1 PO
[2016-12-05] MEDS ORDERED: ACYCLOVIR400 MG PO (12:09)
[2016-12-05] MEDS ORDERED: COMPAZINE 10MG10 MG PO (12:10)
[2016-12-05] MEDS ORDERED: LEVAQUIN500 MG PO (12:10)
[2016-12-05] MEDS ORDERED: MAG-OX-400(241400 MG PO (12:11)
[2016-12-05] MEDS ORDERED: VFEND200 MG PO (12:11)
[2016-12-06 05:22] LABS: RBC 2.17 M/uL (3.50-5.50)
[2016-12-06 05:24] LABS: ANION GAP 12.3 (10.0-19.0); POTASSIUM 4.3 mMol/L (3.7-5.1)
[2016-12-06 05:49] LABS: HEMATOCRIT 19.9 % (37.0-53.0); HEMOGLOBIN 6.8 g/dL (11.0-16.0); MCH 31.3 pg (27.0-34.0); MCHC 34.2 gm/dL (32.0-36.5); MCV 91.7 fl (83.0-98.0); PLATELET COUNT 24 K/uL (150-450); RDW-CV 13.9 % (11.9-14.6); WBC 0.8 K/uL (4.0-11.0)
[2016-12-06 05:52] LABS: LYMPHOCYTE # 0.7 K/uL (0.8-4.0); LYMPHOCYTE % 88 %; SEGMENTED NEUTROPHIL % 4 %
[2016-12-07 06:14] LABS: HEMATOCRIT 18.3 % (37.0-53.0); MCV 90.6 fl (83.0-98.0); MPV 9.7 fl (9.4-12.4); RBC 2.02 M/uL (3.50-5.50)
[2016-12-07 06:54] LABS: HEMOGLOBIN 6.4 g/dL (11.0-16.0); MCH 31.7 pg (27.0-34.0); WBC 0.7 K/uL (4.0-11.0)
[2016-12-08 06:14] LABS: HEMATOCRIT 18.7 % (37.0-53.0); MPV 9.4 fl (9.4-12.4); RBC 2.1 M/uL (3.50-5.50); RDW-CV 14.6 % (11.9-14.6)
[2016-12-08 06:17] LABS: ANION GAP 11.9 (10.0-19.0); CALCIUM 7.8 mg/dL (8.5-10.5); POTASSIUM 3.9 mMol/L (3.7-5.1)
[2016-12-08 06:18] LABS: HEMOGLOBIN 6.5 g/dL (11.0-16.0); MCHC 34.8 gm/dL (32.0-36.5); WBC 0.7 K/uL (4.0-11.0)
[2016-12-09 07:33] LABS: HEMATOCRIT 18.2 % (37.0-53.0); HEMOGLOBIN 6.3 g/dL (11.0-16.0); MCHC 34.6 gm/dL (32.0-36.5); MCV 89.7 fl (83.0-98.0); MPV 11.9 fl (9.4-12.4); RBC 2.03 M/uL (3.50-5.50); RDW-CV 14.4 % (11.9-14.6); WBC 0.6 K/uL (4.0-11.0)
[2016-12-10 05:32] LABS: HEMATOCRIT 23.1 % (37.0-53.0); HEMOGLOBIN 8.1 g/dL (11.0-16.0); MCH 30.8 pg (27.0-34.0); MCHC 35.1 gm/dL (32.0-36.5); MCV 87.8 fl (83.0-98.0); MPV 9.6 fl (9.4-12.4); RBC 2.63 M/uL (3.50-5.50); RDW-CV 14.9 % (11.9-14.6); WBC 0.7 K/uL (4.0-11.0)
[2016-12-11 04:59] LABS: ANION GAP 13.7 (10.0-19.0); CALCIUM 8.1 mg/dL (8.5-10.5); POTASSIUM 3.7 mMol/L (3.7-5.1)
[2016-12-11 05:00] LABS: CREATININE 1.8 mg/dL (0.6-1.3)
[2016-12-11 05:05] LABS: HEMATOCRIT 19.7 % (37.0-53.0); MCV 89.5 fl (83.0-98.0); MPV 9.7 fl (9.4-12.4); RBC 2.2 M/uL (3.50-5.50); RDW-CV 14.7 % (11.9-14.6)
[2016-12-11 05:06] LABS: HEMOGLOBIN 6.8 g/dL (11.0-16.0); MCH 30.9 pg (27.0-34.0); MCHC 34.5 gm/dL (32.0-36.5); WBC 0.8 K/uL (4.0-11.0)
[2016-12-12 10:06] LABS: HEMATOCRIT 22.9 % (37.0-53.0); MCH 30.9 pg (27.0-34.0); MCHC 34.9 gm/dL (32.0-36.5); MCV 88.4 fl (83.0-98.0); MPV 11.3 fl (9.4-12.4); RBC 2.59 M/uL (3.50-5.50); RDW-CV 14.3 % (11.9-14.6); WBC 0.6 K/uL (4.0-11.0)
[2016-12-12 10:14] LABS: ANION GAP 12.1 (10.0-19.0); CALCIUM 7.9 mg/dL (8.5-10.5); POTASSIUM 4.1 mMol/L (3.7-5.1)
== END 2016-12-12 17:28 | disposition other institution (70) | DRG 809 ==
LOC: GMSU 11:33
PROVIDERS: Nurse Practitioner Family; ADMIT Internal Medicine
PROC: 30233N1 Transfusion of Nonautologous Red Blood Cells into Peripheral Vein, Percutaneous Approach (ICD-10-PCS; principal; 2016-12-06)
DX: D61.810 Antineoplastic chemotherapy induced pancytopenia (principal); C92.00 Acute myeloblastic leukemia, not having achieved remission; C92.30 Myeloid sarcoma, not having achieved remission; D75.9 Disease of blood and blood-forming organs, unspecified; S81.802D Unspecified open wound, left lower leg, subsequent encounter; Z85.828 Personal history of other malignant neoplasm of skin; Z87.891 Personal history of nicotine dependence; T80.92XA Unspecified transfusion reaction, initial encounter; E78.5 Hyperlipidemia, unspecified; M47.9 Spondylosis, unspecified
CPT/HCPCS: A9577; J0131; J0692; J1200; J1940; J2185; J2997; J3370; J7030; J7040; J7050; P9037; P9040